=== PATIENT | male | born 1995 | race Caucasian/White ===

== ENCOUNTER 2024-04-14 15:44 | Emergency (ER) | payer BC ==
[~2024-04-14] VITALS: Ht 177.8 cm; Wt 95.0 kg
[2024-04-14 15:46] VITALS: O2SAT 100
[2024-04-14] MEDS: KETOROLAC 30MG/ML VIAL IM ONE (16:52)
[2024-04-14] MEDS ORDERED: LIDO1ADH16 TP (18:12)
[2024-04-14 18:38] VITALS: BP 122/88; PULSE 84; RESP 18; TEMP 37.1; O2SAT 100
== END 2024-04-14 18:39 | disposition home or self-care (01) ==
LOC: ER 15:44
DX: M54.50 Low back pain, unspecified (principal); W19.XXXA Unspecified fall, initial encounter; Y93.89 Activity, other specified; Y92.89 Other specified places as the place of occurrence of the external cause; Y99.8 Other external cause status
CPT/HCPCS: 99284; 71045; 72100; 96372; J1885